=== PATIENT | female | born 1955 | race Caucasian/White ===

== ENCOUNTER 2024-07-21 13:20 | Emergency (ER) | payer MEDICARE, OTHER ==
[~2024-07-21] VITALS: Ht 165.1 cm; Wt 59.1 kg
[~2024-07-21 13:20] MED LIST: GLIP10TA16 PO; INSU100V31 IJ; LISI10TA24 PO; METF-446 PO; SIMV10TA97 PO
[2024-07-21 13:32] VITALS: TEMP 98.7
[2024-07-21 14:26] LABS: BASOPHILS % (AUTO) 0.8 % (0.0-2.0); EOSINOPHILS % (AUTO) 0.8 % (1.0-6.0); HEMATOCRIT 44.8 % (36-46); HEMOGLOBIN 14.8 g/dL (12.0-16.0); LYMPHOCYTES # (AUTO) 1.4 K/uL (1.0-4.8); LYMPHOCYTES % (AUTO) 22.8 % (22.0-44.0); MEAN CORPUSCULAR HEMOGLOBIN 32.4 pg (26.0-34.0); MEAN CORPUSCULAR HGB CONC 33.1 G/dL (31.0-37.0); MEAN CORPUSCULAR VOLUME 98 fL (80-100); MONOCYTES # (AUTO) 0.3 K/uL (0.1-1.0); MONOCYTES % (AUTO) 5.1 % (2.0-9.0); NEUTROPHILS # (AUTO) 4.4 K/uL (1.8-7.7); NEUTROPHILS % (AUTO) 70.5 % (40.0-70.0); PLATELET COUNT (AUTO) 224 K/uL (150-450); RED BLOOD CELL COUNT(AUTO) 4.57 MIL/uL (4.00-5.20); RED CELL DISTRIBUTION WIDTH 13.6 % (11.5-14.5); WHITE BLOOD COUNT (AUTO) 6.3 K/uL (4.5-11.0)
[2024-07-21 14:39] LABS: ANION GAP 16 mmol/L (8-16); CALCIUM, TOTAL 9.2 mg/dL (8.8-10.5); CARBON DIOXIDE 24 mmol/L (22-29); CHLORIDE 93 mmol/L (98-107); CREATININE 0.91 mg/dL (0.60-1.30); GLOMERULAR FILTR. RATE CALC > 60 mL/min (>60); POTASSIUM 4.7 mmol/L (3.5-5.1); SODIUM SERUM 133 mmol/L (136-145); UREA NITROGEN, BLOOD 20 mg/dL (7-18)
[2024-07-21 14:40] LABS: GLUCOSE,RANDOM 534 mg/dL (70-110)
[2024-07-21] MEDS: INSULIN REGULAR, HUMAN 100 UNITS/ML IVP ONE (14:53)
[2024-07-21] MEDS: SODIUM CHLORIDE 0.9% 1,000 ML IV ONE (14:56)
[2024-07-21 15:20] VITALS: BP 138/72; PULSE 78; RESP 16; O2SAT 99
== END 2024-07-21 15:25 | disposition left against medical advice (07) ==
LOC: EMS 13:20
DX: S09.90XA Unspecified injury of head, initial encounter (principal); R42 Dizziness and giddiness; E11.65 Type 2 diabetes mellitus with hyperglycemia; I10 Essential (primary) hypertension; E78.00 Pure hypercholesterolemia, unspecified; Z79.4 Long term (current) use of insulin; Z79.84 Long term (current) use of oral hypoglycemic drugs; Z79.899 Other long term (current) drug therapy; W01.0XXA Fall on same level from slipping, tripping and stumbling without subsequent striking against object, initial encounter; Y93.01 Activity, walking, marching and hiking; Y92.89 Other specified places as the place of occurrence of the external cause; Y99.8 Other external cause status
CPT/HCPCS: 99283; 96374; 96361; 80048; 85025; 36415; 82962; J1815; J7030